=== PATIENT | female | born 1985 | race Caucasian/White ===

== ENCOUNTER 2018-09-12 16:25 | Emergency (ER) | payer MEDICAID, OTHER ==
[~2018-09-12] VITALS: Ht 167.6 cm; Wt 40.8 kg
[2018-09-12 16:29] VITALS: BP_SYST 107
[2018-09-12] MEDS ORDERED: NACL 0.9% 1,000 ML IV ONE ×2 (16:29→18:15)
--- NOTE | 2018-09-12 16:30 | NUR ---
Placed in room 5 . Placed on cardiac technologist, blood pressure machine and pulse oximeter. To gown for exam. Side rails up. Report given to Deny ADAMSON.
--- NOTE | 2018-09-12 16:35 | NUR ---
PT came to ER with clamp operator by bedside. PT complained of N/V and abd pain. PT is not presenting any signs of acute distress.
[2018-09-12] MEDS ORDERED: ONDANSETRON HCL 4 MG/2 ML VIAL IVP ONE (16:45)
[2018-09-12] MEDS ORDERED: NS 1000 ML IV.SOLN IV ONE (16:45)
--- NOTE | 2018-09-12 16:49 | NUR ---
ER at bedside examining patient.
[2018-09-12 16:57] LABS: BILIRUBIN,URINE NEGATIVE (NEGATIVE); BLOOD, URINE NEGATIVE (NEGATIVE); COLOR,URINE YELLOW (YELLOW); GLUCOSE,URINE NEGATIVE (NEGATIVE); KETONES,URINE TRACE (NEGATIVE); LEUKOCYTE ESTERASE ,URINE 1+ (NEGATIVE); NITRITE, URINE NEGATIVE (NEGATIVE); PH,URINE 6.5 (5.0-8.0); PROTEIN URINE NEGATIVE (NEGATIVE); UROBILINOGEN,URINE 0.2 (0.2-1.0)
[2018-09-12 17:10] LABS: BASOPHILS % (AUTO) 0.6 % (0.0-2.0); EOSINOPHILS % (AUTO) 0.6 % (0.0-4.0); HEMATOCRIT 36.7 % (36-48); HEMOGLOBIN 11.7 g/dL (12.0-16.0); LYMPHOCYTES # (AUTO) 1.2 K/uL (1.0-5.5); LYMPHOCYTES % (AUTO) 24.2 % (20.5-51.5); MEAN CORPUSCULAR HEMOGLOBIN 26 pg (27-31); MEAN CORPUSCULAR HGB CONC 32 % (32-36); MEAN CORPUSCULAR VOLUME 80 fL (79.0-98.0); MONOCYTES # (AUTO) 0.5 K/uL (0.0-1.0); MONOCYTES % (AUTO) 10.3 % (1.7-9.3); NEUTROPHILS # (AUTO) 3.1 K/uL (1.8-7.7); NEUTROPHILS % (AUTO) 64.3 % (40.0-70.0); PLATELET COUNT (AUTO) 343 K/uL (130-430); RED BLOOD CELL COUNT(AUTO) 4.58 MIL/uL (4.2-6.2); WHITE BLOOD COUNT (AUTO) 4.8 K/uL (4.8-10.8)
[2018-09-12 17:14] LABS: CLARITY/URINE HAZY (CLEAR)
[2018-09-12 17:15] LABS: BARBITURATE, URINE NEGATIVE (NEG <=200); BENZODIAZEPINE, URINE NEGATIVE (NEG <=150); CANNABINOID, URINE NEGATIVE (NEG <=50); COCAINE, URINE NEGATIVE (NEG <=150); METHAMPHETAMINES SCREEN,URINE POSITIVE (NEG <=500); OPIATE, URINE POSITIVE (NEG <=100); PHENCYCLIDINE SCREEN,URINE NEGATIVE (NEG <=25); UR TRICYCLIC ANTIDEPRESSANTS NEGATIVE (NEG <=300); URINE AMPHETAMINE POSITIVE (NEG <=500); URINE METHADONE NEGATIVE (NEG <=200); URINE OXYCODONE SCREEN NEGATIVE (NEG <=100); URINE PROPOXYPHENE SCREEN NEGATIVE (NEG <=300)
[2018-09-12 17:17] LABS: BACTERIA,URINE FEW /HPF (None Seen); CALCIUM OXALATE CRYSTALS,UR 0-10 /HPF (None Seen); RBC,URINE NONE SEEN /HPF (0-3)
[2018-09-12 17:18] LABS: MUCUS,URINE 1+ /LPF (None Seen)
[2018-09-12 17:24] LABS: INR 1.1 (0.8-1.2); PROTHROMBIN TIME 10.9 SECS (9.5-12.5)
[2018-09-12 17:30] LABS: ANION GAP 7 (5-15); CALCIUM 9.2 mg/dL (8.4-11.0); CHLORIDE 105 mmol/L (98-107); CREATININE 0.83 mg/dL (0.55-1.30); GLUCOSE 75 mg/dL (70-99); SODIUM SERUM 140 mmol/L (136-145); UREA NITROGEN, BLOOD 8 mg/dL (8-21)
[2018-09-12 17:31] LABS: GFR AFRICAN AMERICAN 102 mL/min (>90)
[2018-09-12 17:36] LABS: ALANINE AMINOTRANSFERASE 37 U/L (12-78); ALBUMIN 3.3 g/dL (3.4-4.8); AMYLASE 45 U/L (0-100); ASPARTATE AMINOTRANSFERASE 18 U/L (10-37); LIPASE 117 U/L (73-393); TOTAL BILIRUBIN 1.6 mg/dL (0.0-1.0)
[2018-09-12 17:51] LABS: ALCOHOL, BLOOD < 3 mg/dL (<10)
--- NOTE | 2018-09-12 17:51 | NUR ---
PT laying on gurney with Justin at bedside. PT is not presenting any signs of acute distress.
[2018-09-12] MEDS ORDERED: cefTRIAXone 1 GM IVPB PREMIX 50 ML IV ONE (18:15)
[2018-09-12] MEDS ORDERED: POTASSIUM CHLORIDE 20 MEQ/PKT PACKET PO ONE (18:15)
[2018-09-12] MEDS ORDERED: ONDANSETRON HCL 4 MG/2 ML VIAL ONE (18:31)
--- NOTE | 2018-09-12 19:00 | NUR ---
IVPB Rocephin was given @ 1823 and completed infusion @ 1900 on 09/12/18
--- NOTE | 2018-09-12 19:05 | NUR ---
VSS, Pt remains in law enforcement custody. Resting on gurney with rails up
[2018-09-12 19:56] VITALS: BP_SYST 118
--- NOTE | 2018-09-12 19:56 | NUR ---
Patient given written and verbal discharge instructions and verbalizes understanding. ER MD discussed with patient the results and treatment provided. Patient in stable condition. ID arm band removed. IV catheter removed intact and dressing applied, no active bleeding. Rx of Tylenol and Zofran given. Patient educated on pain management and to follow up with PMD. Pain Scale 0/10. Opportunity for questions provided and answered. Medication side effect fact sheet provided.
[2018-09-12 20:08] LABS: CREATININE 0.61 mg/dL (0.55-1.30); POTASSIUM 3.3 mmol/L (3.5-5.1)
[2018-09-12 20:19] LABS: CALCIUM 7.9 mg/dL (8.4-11.0)
== END 2018-09-12 19:56 ==
LOC: SED 16:25
DX: K80.50 Calculus of bile duct without cholangitis or cholecystitis without obstruction (principal); N39.0 Urinary tract infection, site not specified; E87.6 Hypokalemia; F15.10 Other stimulant abuse, uncomplicated; F11.10 Opioid abuse, uncomplicated; F19.10 Other psychoactive substance abuse, uncomplicated; Z88.0 Allergy status to penicillin
CPT/HCPCS: 36415; 71045; 80048; 80053; 80307; 81000; 81025; 82150; 82550; 83605; 83690; 85025; 85610; 85730; 87040; 87086; 93005; 96361; 96365; 96375; 99284; G0481; G0482; J0696; J2405; J7030